=== PATIENT | female | born 2000 | race Caucasian/White ===

== ENCOUNTER 2021-11-28 16:11 | Emergency (ER) | payer MEDICAID, SELFPAY ==
--- NOTE | 2021-11-28 16:30 | DI.RAD_ITS ---
Exam(s) XR KNEE RT 3V AP,LAT,CINDI EXAM: XR KNEE RT 3V AP,LAT,CINDI CLINICAL HISTORY: medial pain, heard pop with flexion. TECHNIQUE: 2D digital imaging was performed of the right knee. Three views obtained. AP, lateral an d PA tunnel views were obtained. COMPARISON: No exams were available for comparison FINDINGS: BONES: No acute fracture is present. No bony destructive lesion is seen. JOINTS: The knee is normally aligned. No joint effusion is seen. SOFT TISSUE: Normal. IMPRESSION: Unremarkable radiographs of the right knee. DATA REPOSITORY: RADIATION DOSE DELIVERED:
--- NOTE | 2021-11-28 16:38 | ED.GENADUL_ITS ---
Discharge Plan Disposition Patient Disposition: HOME Condition: Stable Discharge Details Clinical Impression: Acute knee pain Primary Care Provider: Unknown,Unknown ED Provider: Mae Covington Home Meds and New Rx's Prescriptions: Continued multivitamin [Daily Multi-Vitamin] 1 EACH tablet 1 ea PO DAILY Qty: 90 3RF guanfacine 4 mg Tablet Extended Release 24 Hr 4 mg PO DAILY 0RF sertraline 25 mg Tablet 25 mg PO DAILY 0RF medroxyprogesterone [Depo-Provera] 150 mg/mL Syringe 150 mg IM DIRECTED 0RF Discharge Instructions Instructions: Knee Pain (ED) Additional Instructions: ibuprofen and tylenol as needed for pain repeat xray in one week with persistent pain return earlier with new or worsening complaints Discharge Data Discharge Date/Time-TO BE ENTERED AT DEPARTURE: 11/28/21 19:11 Medical Decision Making Patient appears well, her x-ray does not show acute abnormality She is placed in a knee splint for comfort and referred to orthopedics Ibuprofen and Tylenol for pain control Return discussed and patient expressed understanding Medical Records Medical records reviewed: Yes I reviewed the patient's medical records. HPI General Date/Time Provider Initiated Documentation: 11/28/21 16:29 . HPI Narrative: This 21-year-old female presents with report of right leg pain for the past several days she describes 3 crack or popping sensation in her knee when she stands today. She has had pain since this morning. Started when she was taking out the trash. She denies any additional injuries. She denies any swelling. She denies feeling like her knee is unstable. She denies any chance of pr egnancy. Denies any strength or sensation change. Denies history of similar symptoms in the past. Has not taken any medications prior to arrival. Related Data Home Medications Medication Instructions Recorded Confirmed multivitamin (Daily Multi-Vitamin) 1 ea PO DAILY #90 tab 11/04/13 11/28/21 guanfacine 4 mg tablet,extended 4 mg PO DAILY 11/28/21 11/28/21 release 24 hr medroxyprogesterone 150 mg/mL 150 mg IM DIRECTED 11/28/21 11/28/21 intramuscular syringe (Depo-Provera) sertraline 25 mg tablet 25 mg PO DAILY 11/28/21 11/28/21 Allergies Allergy/AdvReac Type Severity Reaction Status Date / Time horse dander Allergy Severe Anaphylaxis Unverified 11/28/21 16:28 Latex, Natural Rubber Allergy Intermediate Hives Unverified 11/28/21 16:28 red dye Allergy Intermediate Hives Unverified 11/28/21 16:28 General Stated Complaint: Orthopedic MARLON: 4 Review of Systems All systems reviewed & are unremarkable except as noted in HPI and below PFSH All Active Problems (Updated 11/28/21 @ 17:50 by RAEANN Kennedy) Acute knee pain (Acute) Social History Smoking/Tobacco Use Status: Never Smoking risk assessment performed?: Yes Alcohol Intake: never Drug use: Never Substance use type: does not use Do you feel safe at home: Yes Do you feel safe in your relationship?: Yes Exam Const General: cooperative, comfortable and no acute distress Skin General skin exam: no rashes or lesions noted Extrem Other: Right knee with medial tenderness, no obvious effusion, no popliteal tenderness, neurovascularly intact, no tenderness to right ankle Course Vital Signs Vital signs: Temperature Source Skin 11/28/21 16:24 Oxygen Delivery Method Room Air 11/28/21 16:24 Oxygen Flow Rate 0 11/28/21 16:24 Pain Level 8 11/28/21 16:24 Comment 11/28/21 16:24
--- NOTE | 2021-11-28 17:42 | DI.VRAD_ITS ---
PROCEDURE INFORMATION: Exam: XR Right Knee Exam date and time: 11/28/2021 5:15 PM Age: 21 years old Clinical indication: Injury or trauma; Other: (message: examlink, study medina: [id number], , patient name: court sanchez, modalities: ct, study dttm: 11/28/2021 11:46:26, sts stat: taken, access no: [id number]); Sprain or strain; Patella or knee; Right TECHNIQUE: Imaging protocol: XR Right knee. Views: 3 views. COMPARISON: No relevant prior studies available. FINDINGS: Limitations: The AP tunnel view is nondiagnostic due to lack of appearance of the knee on the film. Only 3 images were able to be viewed. Bones/joints: Unremarkable. Soft tissues: Unremarkable. IMPRESSION: 1. No evidence for acute bony injury. If clinical symptoms persist recommend followup film in 7-10 days. 2. The AP tunnel view did not have information. The images completely grade out. Dictated and Authenticated by: Lidia Roca MD. Ordering:ISAAC Wall MD
[2021-11-28 18:43] VITALS: BP 143/89; PULSE 112; RESP 20; TEMP 36.6; O2SAT 97
== END 2021-11-28 19:11 | disposition home or self-care (01) ==
PROVIDERS: Emergency Provider Physician Assistant
DX: M25.561 Pain in right knee (principal)
CPT/HCPCS: 29505; 73562; 81025; 99283